=== PATIENT | male | born 1970 | race Caucasian/White ===

== ENCOUNTER 2024-04-23 08:36 | Emergency (ER) | payer SELFPAY ==
[~2024-04-23] VITALS: Ht 165.1 cm; Wt 72.0 kg
[2024-04-23] MEDS: pantoprazole 40 MG vial IV ONE (09:00)
[2024-04-23 09:18] LABS: BASOPHILS % (AUTO) 0.3 % (0-1); EOSINOPHILS % (AUTO) 0.2 % (0-6); HEMATOCRIT 49.8 % (42.0-52.0); HEMOGLOBIN 16.4 g/dl (14.0-17.9); LYMPHOCYTES # (AUTO) 1.7 X10'3 (1.1-4.8); LYMPHOCYTES % (AUTO) 13.3 % (21-51); MEAN CORPUSCULAR HEMOGLOBIN 29.9 PG (27.0-31.0); MEAN CORPUSCULAR VOLUME 90.8 FL (78-98); MEAN PLATELET VOLUME 9.1 FL (7.4-10.4); MONOCYTES # (AUTO) 1.6 X10'3 (0-0.9); MONOCYTES % (AUTO) 12.1 % (2-12); NEUTROPHILS # (AUTO) 9.5 X10'3 (1.8-7.7); NEUTROPHILS % (AUTO) 74.1 % (42-75); PLATELET COUNT 357 X10'3 (140-440); RED BLOOD COUNT 5.49 X10'6 (4.70-6.10); RED CELL DISTRIBUTION WIDTH 13.6 % (11.5-14.5); WHITE BLOOD COUNT 12.9 X10'3 (4.5-11.0)
[2024-04-23 09:27] LABS: APTT 28 SECONDS (22-32); INR 1.1 INR; PROTHROMBIN TIME 11.5 SECONDS (9.0-12.0)
[2024-04-23 09:37] LABS: ALBUMIN 4.5 G/DL (3.4-5.0); ANION GAP 10 (8-16); BLOOD UREA NITROGEN 30 MG/DL (7-18); BUN/CREATININE RATIO 30.6 (10.0-20.0); CALCIUM 9.4 MG/DL (8.5-10.1); CHLORIDE 93 MMOL/L (99-107); CREATININE 0.98 MG/DL (0.60-1.10); ETHANOL < 10 MG/DL (<10); GLUCOSE 269 MG/DL (70-104); LIPASE 35 U/L (16-77); MAGNESIUM 2.8 MG/DL (1.5-2.4); POTASSIUM 4.1 MMOL/L (3.5-5.1); SODIUM 130 MMOL/L (135-145); TOTAL CARBON DIOXIDE 26.8 MMOL/L (24-32); eCRCL 76 ML/MIN; eGFR 80 ML/MIN
[2024-04-23 09:58] LABS: ALANINE AMINOTRANSFERASE 28 U/L (12-78); ALBUMIN/GLOBULIN RATIO 1.3 (1.1-1.5); ALKALINE PHOSPHATASE 67 IU/L (46-116); ASPARTATE AMINO TRANSFERASE 10 U/L (10-37); BILIRUBIN,DIRECT 0.2 MG/DL (0-0.3); BILIRUBIN,TOTAL 1.2 MG/DL (0.1-1.0); TOTAL PROTEIN 8.1 G/DL (6.4-8.2)
[2024-04-23] MEDS: ondansetron/PF 4mg/2ml inj IV ONE (10:19)
[2024-04-23 10:30] VITALS: TEMP 98.6
[2024-04-23 12:04] LABS: GASTRIC OCCULT BLOOD POSITIVE (Neg)
[2024-04-23] MEDS ORDERED: METF-900 PO (12:14)
[2024-04-23] MEDS ORDERED: LISI20TA28 PO (12:14)
[2024-04-23] MEDS ORDERED: PRAV10TA39 PO (12:14)
[2024-04-23] MEDS: normal saline 1000ML IV soln IVB ONE (12:27)
[2024-04-23] MEDS ORDERED: PANT20TA2 PO (14:53)
[2024-04-23] MEDS ORDERED: ONDA-243 PO (14:53)
[2024-04-23 14:56] VITALS: BP 152/82; PULSE 67; RESP 16; O2SAT 97
== END 2024-04-23 15:05 | disposition home or self-care (01) ==
LOC: ER 08:37
DX: K29.60 Other gastritis without bleeding (principal); E86.0 Dehydration; E11.9 Type 2 diabetes mellitus without complications; Z79.899 Other long term (current) drug therapy; Z79.84 Long term (current) use of oral hypoglycemic drugs
CPT/HCPCS: 36415; 80048; 80076; 80320; 82271; 82948; 83690; 83735; 85025; 85610; 85730; 96361; 96374; 96375; 99284; J2405; J2470; J7030